=== PATIENT | male | born 1980 ===

== ENCOUNTER 2017-07-09 20:35 | Emergency (ER) | payer SELFPAY ==
[2017-07-09 20:44] VITALS: BP 139/84; PULSE 97; RESP 18; O2SAT 97
--- NOTE | 2017-07-09 21:24 | ED PDOC ---
HPI: Psych/Substance Abuse Time Seen by Provider: 07/09/17 20:45 Chief Complaint (Nursing): Altered Mental Status Chief Complaint (Provider): AMS ED Caveat: Intoxicated Modifying Factor(s): Alcohol Additional Complaint(s): Pt BIBA after being found on ground outside. Pt states he drank "a lot". Past Medical History Reviewed: Nursing Documentation, Vital Signs Vital Signs: Last Vital Signs Temp Pulse 97 H 07/09/17 20:37 Resp 18 07/09/17 20:37 BP 139/84 07/09/17 20:37 Pulse Ox 97 07/09/17 20:37 - Family History Family History: States: Unknown Family Hx - Allergies Allergies/Adverse Reactions: Allergies Allergy/AdvReac Type Severity Reaction Status Date / Time Unobtainable Allergy Verified 07/09/17 20:40 Review of Systems Review Of Systems: ROS cannot be obtained secondary to pt's inabilty to answer questions. Physical Exam - Reviewed Nursing Documentation Reviewed: Yes Vital Signs Reviewed: Yes - Physical Exam Appears: Positive for: Well, No Acute Distress Head Exam: Positive for: ATRAUMATIC, NORMAL INSPECTION Skin: Positive for: Normal Color, Warm, Dry Eye Exam: Positive for: Normal appearance, PERRL Neck: Positive for: Trachea Midline. Negative for: Limited ROM Cardiovascular/Chest: Positive for: Regular Rate, Rhythm Respiratory: Positive for: Normal Breath Sounds Gastrointestinal/Abdominal: Positive for: Normal Exam Neurologic/Psych: Positive for: imaging account manager II-XII (Grossly normal), Other (Responsive to verbal stimuli, moving all extremities). Negative for: Facial Droop - ECG O2 Sat by Pulse Oximetry: 97 Medical Decision Making Medical Decision Makin yo male with alcohol intoxication. - EtOH level - accucheck - CT head - CT C-spine Disposition - Patient ED Disposition Is Patient to be Admitted: Transfer of Care Discussed With : Abiodun Loredo Doctor Will See Patient In The: ED - Disposition Disposition: Transfer of Care Disposition Time: 00:00 (pending clinical sobriety) Condition: FAIR Forms: [employer] (Nepalese) Patient Signed Over To: Abiodun Loredo
--- NOTE | 2017-07-10 00:22 | ED PDOC ---
- ECG O2 Sat by Pulse Oximetry: 97 (RA) Pulse Ox Interpretation: Normal Medical Decision Making Medical Decision Makin:00 Patient signed out to the provider, by Dr. Villasenor pending clinical sobriety. Reassess --23:16 FINDINGS:CT Head Without Intravenous Contrast Brain: Unremarkable. No hemorrhage. No significant white matter disease. No edema. Ventricles: Unremarkable. No ventriculomegaly. Bones/joints: Unremarkable. No acute fracture. Soft tissues: Unremarkable. Sinuses: There is mild mucosal thickening in the left maxillary sinus. Mastoid air cells: Unremarkable as visualized. No mastoid effusion. IMPRESSION: No acute intracranial pathology. --23:18 FINDINGS:CT Cervical Spine Without Intravenous Contrast Vertebrae: Unremarkable. No acute fracture. Discs/spinal canal/neural foramina: No acute findings. No spinal canal stenosis. Soft tissues: Unremarkable. Lung apices: Unremarkable as visualized. IMPRESSION: No cervical spine fracture or other acute CT pathology. --06:14 At 6AM pt AAO x3 and has steady gait and fluent speech. Stable on discharge Dx Alcohol intoxication Scribe Attestation: Documented by Donato Chambers acting as a scribe for Abiodun Loredo MD. Disposition - Clinical Impression Clinical Impression: Alcohol intoxication - POA Present On Arrival: None - Disposition Disposition: Routine/Home Disposition Time: 06:14 Condition: STABLE Instructions: Alcohol Intoxication (ED) Forms: [employer] (Croatian)
--- NOTE | 2017-07-10 10:43 | CT ---
PROCEDURE: CT HEAD WITHOUT CONTRAST. HISTORY: Found on ground COMPARISON: None available. TECHNIQUE: Axial computed tomography images were obtained through the head/brain without intravenous contrast. Radiation dose: Total exam DLP = 115.24 MGy-cm. This CT exam was performed using one or more of the following dose reduction techniques: Automated exposure control, adjustment of the mA and/or kV according to patient size, and/or use of iterative reconstruction technique. FINDINGS: HEMORRHAGE: No intracranial hemorrhage. BRAIN: Kathleen-white matter differentiation is preserved. There is no mass, mass effect or abnormal extra-axial fluid collection. VENTRICLES: The ventricles are normal in size, shape and configuration. CALVARIUM: There is no calvarial fracture or extracranial soft tissue swelling. PARANASAL SINUSES: There is minimal mucosal thickening in the left inferior maxillary sinus, otherwise predominantly clear. MASTOID AIR CELLS: Predominantly clear. OTHER FINDINGS: None. IMPRESSION: No acute intracranial abnormality. A preliminary report was provided by [employer] [facility].
--- NOTE | 2017-07-10 10:48 | CT ---
PROCEDURE: CT Cervical Spine without contrast HISTORY: Fall COMPARISON: None available. TECHNIQUE: Axial computed tomography images were obtained of the cervical spine without the use of intravenous contrast. Coronal and sagittal reformatted images were created and reviewed. Radiation dose: Total exam DLP = 454.40 mGy-cm. This CT exam was performed using one or more of the following dose reduction techniques: Automated exposure control, adjustment of the mA and/or kV according to patient size, and/or use of iterative reconstruction technique. FINDINGS: VERTEBRAE: There is normal alignment of the cervical vertebral bodies. There is straightening of the cervical spine with loss of normal cervical lordosis which may be positional or related to muscle spasm. There is no acute fracture or traumatic anterior listhesis. The craniocervical junction is normal. The atlantoaxial joint is normal. DISCS/SPINAL CANAL/NEURAL FORAMINA: The disc heights are maintained. PARASPINAL SOFT TISSUES: The paraspinous soft tissues are normal. No prevertebral soft tissue thickening. OTHER FINDINGS: None. IMPRESSION: No acute fracture or traumatic anteriorly. A preliminary report was provided by [employer] [facility].
== END 2017-07-10 06:19 | disposition home or self-care (01) ==
LOC: H.ER 20:35
DX: F10.129 Alcohol abuse with intoxication, unspecified (principal); Y90.8 Blood alcohol level of 240 mg/100 ml or more
CPT/HCPCS: 70450; 72125; 82948; G0480